=== PATIENT | male | born 1995 | race Two or more races ===

== ENCOUNTER 2016-09-07 12:43 | Emergency (ER) | payer MEDICARE, MEDICAID ==
[~2016-09-07] VITALS: Ht 154.9 cm; Wt 49.9 kg
[2016-09-07 13:30] VITALS: BP 148/82
== END 2016-09-07 14:49 | disposition home or self-care (01) ==
LOC: ER 12:56
DX: S83.005A Unspecified dislocation of left patella, initial encounter (principal); W19.XXXA Unspecified fall, initial encounter; Y93.89 Activity, other specified; Y92.89 Other specified places as the place of occurrence of the external cause; Y99.8 Other external cause status
CPT/HCPCS: 27560; 73562